=== PATIENT | male | born 1960 | race Caucasian/White ===

== ENCOUNTER 2016-11-14 10:40 | Emergency (ER) | payer BC ==
[2016-11-14 13:18] VITALS: BP 154/83
--- NOTE | 2016-11-25 08:08 | UC ---
jose angel Jacob Timothy, scribed for Michela Murray MD on 11/14/16 at 1253 . Skin Complaint HPI - HPI Summary HPI Summary: Chuck Campbell is a 56 yo male presenting to [facility] with a tick on his right posterior neck at 0900 this morning. He is not in any current pain. His MHx includes NC 2008, HTN, tobacco use. - History of Current Complaint Chief Complaint: UCWounds Time Seen by Provider: 11/14/16 12:46 Stated Complaint: TICK BITE Hx Obtained From: Patient Onset/Duration: Sudden Onset, Lasting Hours, Still Present Skin Exposure Onset/Duration: Hours Ago Timing: Constant Onset Severity: Moderate Current Severity: Moderate Pain Intensity: 0 Pain Scale Used: 0-10 Numeric Location: Discrete - posterior right neck Related History: Insect Bite/Sting - Allergy/Home Medications Allergies/Adverse Reactions: Allergies Allergy/AdvReac Type Severity Reaction Status Date / Time No Known Allergies Allergy Verified 11/14/16 11:08 Home Medications: Home Medications Atorvastatin* [Lipitor 40 MG*] 1 tab PO DAILY 11/14/16 [History Confirmed ] Losartan/HCTZ 100/25 (NF) [Hyzaar 100/25 (NF)] 1 tab PO BID 11/14/16 [History Confirmed 11/14/16] Metoprolol Tartrate [Lopressor] 25 mg PO BID 11/14/16 [History Confirmed ] Review of Systems Constitutional: Negative Skin: Other - tick bite right posterior neck ENT: Negative Respiratory: Negative Cardiovascular: Negative Gastrointestinal: Negative Genitourinary: Negative Motor: Negative Neurovascular: Negative Musculoskeletal: Negative Neurological: Negative Psychological: Negative All Other Systems Reviewed And Are Negative: Yes PMH/Surg Hx/FS Hx/Imm Hx Cardiovascular History Of: Reports: Cardiac Disorders - NC 2009, Hypertension - Surgical History Surgical History: Yes Surgery Procedure, Year, and Place: Angioplasty 2008 - Family History Known Family History: Negative: Cardiac Disease, Hypertension - Social History Alcohol Use: Occasionally Substance Use Type: None Smoking Status (MU): Heavy Every Day Tobacco Smoker Type: Cigarettes Amount Used/How Often: 10 cig/day Household Exposure Type: Cigarettes Physical Exam Triage Information Reviewed: Yes Appearance: No Pain Distress, Well-Nourished, Ill-Appearing Vital Signs: Initial Vital Signs Temp 98.0 F 11/14/16 11:04 Pulse 59 11/14/16 11:04 Resp 16 11/14/16 11:04 BP 140/69 11/14/16 11:04 Pulse Ox 99 11/14/16 11:04 Vital Signs Reviewed: Yes Eyes: Positive: Conjunctiva Clear. Negative: Discharge ENT: Positive: Hearing grossly normal. Negative: Muffled/hoarse voice Neck: Positive: Other: - right posterior neck tick bite Respiratory: Positive: Lungs clear, Normal breath sounds, No respiratory distress Cardiovascular: Positive: RRR, No Murmur, Pulses Normal, Brisk Capillary Refill Musculoskeletal: Positive: Strength Intact, ROM Intact Neurological: Positive: Alert, Muscle Tone Normal Psychological Exam: Normal Psychological: Positive: Age Appropriate Behavior Skin: Positive: Other - tick bite right posterior neck Re-Evaluation - Re-Evaluation First Eval Re-Evaluation Time: 13:08 Change: Unchanged Comment: tick was removed Course/Dx - Course Course Of Treatment: Chuck campbell is a 56 yo male presenting to [facility] with a tick bite to his right posterior neck, noticed at 0900 this morning. After clinical examination and tick removal, he will be discharged home with tick bite and appropriate instructions. Due to his BP of 140/69, he will also be Dx with HTN in poor control. - Differential Diagnoses - Skin Complaint Differential Diagnoses: Tick Born Illness - Diagnoses Provider Diagnoses: tick bite, HTN in poor control Procedures - Procedure Summary Procedure Summary: tick was partially removed with tick twister using sterile technique. Additional pieces of tick were removed with needle. Pt tolerated procedure well. Discharge - Discharge Plan Condition: Stable Disposition: HOME Patient Education Materials: Tick Bite (ED), Lyme Disease (ED), Chronic Hypertension (ED) Referrals: Kannan Suarez MD [Primary Care Provider] - 2 Days Additional Instructions: Please follow up with your primary care physician regarding your visit to urgent care today. Your blood pressure was high today, you should have it rechecked within 1 month. Return to urgent care or the emergency department with any new or recurring symptoms. The documentation as recorded by the jose angel prescott Timothy accurately reflects the service I personally performed and the decisions made by me, Michela Murray MD.
== END 2016-11-14 13:24 | disposition home or self-care (01) ==
LOC: UCEAST 10:40
DX: S10.96XA Insect bite of unspecified part of neck, initial encounter (principal); W57.XXXA Bitten or stung by nonvenomous insect and other nonvenomous arthropods, initial encounter; Y93.9 Activity, unspecified; Y92.9 Unspecified place or not applicable; I25.2 Old myocardial infarction; I10 Essential (primary) hypertension; F17.210 Nicotine dependence, cigarettes, uncomplicated
CPT/HCPCS: 99202; G0463

== ENCOUNTER → 2018-09-30 10:54 | Day surgery (SDC) | payer BC ==
[~2018-09-30 10:54] MED LIST: Acetaminophen TAB* 325 MG ONE; Acetaminophen TAB* 325 MG PO ONE; Acetaminophen TAB* 325 MG PO PRN; Bacitracin OINTMENT* 0.5% 0.5 oz TUBE ONE; Buffered Lidocaine 1% SYRIN* 1 ML/SYRINGE INTRADERM ONE; Cisatracurium* 2 MG/ML MDV 5 ML ONE; Dexamethasone IV* 4 MG/ML 1 ML (4 MG) ONE; DiMENhydriNATE IV* 50 MG/ML VIAL IV PUSH PRN; EPHEDrine (Pressors)* 50 MG/ML VIAL ONE; Famotidine IV* 10 MG/ML 2 ML (20 mg) IV ONE; Famotidine IV* 10 MG/ML 2 ML (20 mg) ONE; Gabapentin CAP(*) 300 MG ONE; Gabapentin CAP(*) 300 MG PO ONE; HYDROcodone/ACETAMIN 5-325 MG* 1 TAB ONE; HYDROcodone/ACETAMIN 5-325 MG* 1 TAB PO PRN; Lactated Ringers 1000 ML Bag* 1,000 ML IV SCH; Levalbuterol 0.63MG/3ML NEB* UNIT OF USE INH PRN; Lidocain 1% EPI 1:100,000 * 30 ML MDV ONE; Metoprolol Tartrate IV* 1 MG/ML 5 ML VIAL ONE; Midazolam* 1 MG/ML 2 ML VIAL (2 MG) ONE; Naloxone* 0.4 MG/ML 1 ML VIAL IV PRN; Ondansetron INJ* 2 MG/ML VIAL IV PRN; Ondansetron INJ* 2 MG/ML VIAL ONE; PROCHLORPERAZINE INJ 5 MG/ML 2 ML VIAL IV PRN; Propofol* 10 MG/ML 20 ML BTL ONE; Succinylcholine* 20 MG/ML 10 ML VIAL ONE; fentaNYL* 50 MCG/ML 2 ML VIAL (100 MCG VIAL) IV PRN; fentaNYL* 50 MCG/ML 2 ML VIAL (100 MCG VIAL) ONE
--- NOTE | 2018-09-30 16:10 | OP ---
DATE OF OPERATION: 09/30/18 [facility] DATE OF : 58 SURGEON: Az Consatntino MD SLOT AMBASSADOR: Dr. Nolan Randolph. ANESTHESIA: General. PRE-OP DIAGNOSIS: Neoplasm, uncertain behavior, right parotid gland. POST-OP DIAGNOSIS: Neoplasm, uncertain behavior, right parotid gland. OPERATIVE PROCEDURE: Right superficial parotidectomy with nerve monitoring. ESTIMATED BLOOD LOSS: Less than 30 cc. SPECIMEN: Right parotid. INDICATIONS: This is a 58-year-old male who I have followed for several months in the office, who initially came in with swelling in the right parotid tail region. It did not resolve on antibiotics initially and so fine needle aspiration was performed. There were some inflammatory cells and atypical cells present in the specimen, but no definitive diagnosis was able to be obtained. Following fine needle aspiration, the lesion did seem to reduce in size significantly and so any further investigation or treatment was deferred, but then it very clearly returned and CT imaging demonstrated a lesion associated with the right parotid tail. We made the decision given the patient' s age, smoking history and lack of definitive diagnosis on FNA to proceed with surgical excision. DESCRIPTION OF PROCEDURE: On 10/02/18, the patient was brought to the operating room. General anesthesia was induced and an oral endotracheal tube was placed. A NIM's facial nerve monitor was then applied to the right hemiface. The intended incision line was marked and approximately 5 cc of 1% lidocaine with 1:100,000 epinephrine was infiltrated into the subcutaneous tissue. The patient was then prepped and draped in sterile fashion and a time- out was performed. The lower limb of the incision immediately overlying the lesion was made first. Initial gentle dissection was undertaken to see if this could be safely and easily from the remainder of the parotid tissue to potentially spare the patient having a full parotid dissection. It became fairly clear that this was intimately enough associated with the gland parenchyma that that would not be advisable. Also, the incision was extended superiorly into the anterior preauricular skin. A preauricular skin flap was elevated. The dissection was then undertaken across the wide front. The sternocleido-mastoid muscle was identified and the anterior ear canal was identified. Again, dissection was undertaken along this general plane until the appropriate depth of the tympanomastoid suture line was achieved and whereby the facial nerve trunk was readily identified. It was confirmed both visually and with a nerve stimulator. The facial nerve was used as a landmark to guide dissection of the superficial portion of the parotid gland. The inferior branches did need to be dissected out essentially in their entirety throughout the parotid parenchyma in order to mobilize the lesion with associated parotid tissue. The dissection was undertaken gently using bipolar forceps and a #12 blade. Once the specimen was removed, the wound was inspected. The facial nerve was found to be visually intact and stimulated with the probe. The wound was irrigated. A few small areas of minor oozing were controlled with bipolar forceps. The wound was irrigated again and a Valsalva was performed. There was no significant bleeding. The wound was then closed. A 4-0 Vicryl was used to close the subcutaneous layer. The preauricular skin was closed with 5-0 fast absorbing gut and the incision from the lobule down to the neck was closed with 4-0 Prolene. A small [place] was placed into the incision just posterior to the lobule and this was secured to the skin with Monocryl. The wound was then dressed. Bacitracin ointment was applied. The patient was returned to the care of the anesthesiologist, aroused from anesthesia, and delivered to the PACU in stable condition where the patient had good facial nerve function. [id number]/CPS #: [id number] BERNARDO
[2018-09-30 16:14] VITALS: BP 128/72
== END | disposition home or self-care (01) ==
LOC: OR 10:54
PROVIDERS: ATTEND Otolaryngology
DX: D11.0 Benign neoplasm of parotid gland (principal); I10 Essential (primary) hypertension; I25.10 Atherosclerotic heart disease of native coronary artery without angina pectoris; I25.2 Old myocardial infarction; Z72.0 Tobacco use; E66.01 Morbid (severe) obesity due to excess calories; E78.00 Pure hypercholesterolemia, unspecified
CPT/HCPCS: 88307; A9270-GY; J0330; J1100; J2250; J2405; J2704; J3010; J3490

== ENCOUNTER 2019-03-20 09:11 | Observation (INO) | payer BC ==
--- NOTE | 2019-03-20 09:43 | ED ---
Abdominal Pain/Male - HPI Summary HPI Summary: The pt is a 59 yr old male presenting to [facility] c/o intermittent epigastric abd pain beginning on 03/07/2019. He was eating at [employer] that date, went home to mow his lawn, and then began to experience abd pain. He then had diarrhea and notes that his stool was black and noticed some rectal bleeding. Afterwards , he ate some chicken and continued to have abd pain. His last bowel movement was this morning. He currently takes 1 aspirin per day for heart after having had a heart attack 10 years [employer]. He rates his pain severity a 9/10 intermittently but notes that it is currently a 3-4 in the room. Per the , the pt has tried liquid anti-acids, BRAT diet, dry toast, and Jello but none of them have alleviated any symptoms. No aggravating factors noted. He also reports vomiting, lightheadedness, lethargy, and weakness. The pts PCP is Dr. Suarez and his GI physician is Dr. Loredo at [place]. He is a former smoker, uses marijuana, and has negative FHx of cardiac disease or HTN. He has surgical history of angioplasty in 2008. Vital signs while in room: HR 75 bpm, BP 111/63 , O2 sat 97 %. Home Medications Medication Instructions Recorded Confirmed Type Atorvastatin* [Lipitor 40 MG*] 1 tab PO QAM 11/14/16 09/30/18 History DOXYcycline CAP(*) [DOXYcycline 100 mg PO DAILY #2 cap 11/14/16 09/23/18 Rx 100MG CAP(*)] Losartan/HCTZ 100/25 (NF) [Hyzaar 1 tab PO QAM 11/14/16 09/30/18 History 100/25 (NF)] Amlodipine Bes/Olmesartan Med 1 tab PO QAM 09/23/18 09/30/18 History [Amlodipine/Olmesartan Med 5-40 mg] Aspirin [Aspir-Low] 81 mg PO QAM 09/23/18 09/30/18 History Bisoprolol TAB* [Zebeta TAB*] 5 mg PO QPM 09/23/18 09/30/18 History Lidocaine 2% JELLY* 1 applic TOPICAL DAILY 09/23/18 09/30/18 History Tadalafil 20 mg PO ONCE PRN 09/23/18 09/23/18 History Tamsulosin CAP* [Flomax CAP*] 0.4 mg PO QAM 09/23/18 09/30/18 History Varenicline (NF) [Chantix 1 MG TAB 1 mg PO BID 09/23/18 09/30/18 History (NF)] - History of Current Complaint Chief Complaint: EDAbdPain Stated Complaint: ABD PAIN/VOMITING/RECTAL BLEEDING PER PT Time Seen by Provider: 03/20/19 09:24 Hx Obtained From: Patient, Family/Shoe Reconditioner - Crystal Onset/Duration: Sudden Onset, Lasting Weeks, Still Present Timing: Intermittent, Lasting Minutes Severity Initially: Severe Severity Currently: Severe Pain Intensity: 9 - currently pain is rated 3-4. Pain Scale Used: 0-10 Numeric Location: Epigastric Radiates: No Character: Sharp Aggravating Factor(s): Nothing Alleviating Factor(s): Nothing Associated Signs And Symptoms: Positive: Vomiting, Diarrhea, Other - pos - abd pain, lethargy, weakness, lightheadedness, black colored stool; neg-fever, chest pain, SOB - Allergies/Home Medications Allergies/Adverse Reactions: Allergies Allergy/AdvReac Type Severity Reaction Status Date / Time No Known Allergies Allergy Verified 04/12/19 11:09 PMH/Surg Hx/FS Hx/Imm Hx Previously Healthy: No Endocrine/Hematology History: Denies: Hx Diabetes Cardiovascular History: Reports: Hx Angina - with heart attack 2008, Hx Angioplasty, Hx Coronary Artery Disease - Failed angioplasty 2008-unable to place stent, Hx Hypercholesterolemia, Hx Hypertension - on medication, Hx Myocardial Infarction Denies: Hx Congestive Heart Failure Respiratory History: Denies: Other Respiratory Problems/Disorders GI History: Denies: Other GI Disorders History: Reports: Other Problems/Disorders - Enlarged prostate-on flomax Denies: Hx Renal Disease Musculoskeletal History: Denies: Other Musculoskeletal History Sensory History: Reports: Hx Contacts or Glasses - Glasses Denies: Hx Hearing Aid Opthamlomology History: Reports: Hx Contacts or Glasses - Glasses Neurological History: Denies: Other Neuro Impairments/Disorders - Surgical History Surgical History: Yes Surgery Procedure, Year, and Place: Angioplasty 2008 Hx Anesthesia Reactions: No Infectious Disease History: No Infectious Disease History: Denies: Traveled Outside the [place] in Last 30 Days - Family History Known Family History: Negative: Cardiac Disease, Hypertension - Social History Lives: With Family Alcohol Use: Weekly Alcohol Amount: once a week-a beer or a six pack on friday Hx Substance Use: Yes Substance Use Type: Reports: Marijuana Substance Use Comment - Amount & Last Used: has used -not recently Smoking Status (MU): Former Smoker Type: Cigarettes Amount Used/How Often: off an on for 30 years Review of Systems Constitutional: Other - pos - lethargic Positive: Fatigue Cardiovascular: Negative Respiratory: Negative Positive: Abdominal Pain, Vomiting, Diarrhea, Other - pos - rectal bleeding, black stool Positive: no symptoms reported Musculoskeletal: Negative Skin: Negative Neurological: Other - pos - lightheadedness Positive: Weakness Psychological: Normal All Other Systems Reviewed And Are Negative: Yes Physical Exam - Summary Physical Exam Summary: Appearance: Ill-appearing, moderate pain distress, well-nourished Skin: Warm, color reflects adequate perfusion, dry Head: Normal Head/Face inspection, atraumatic Eyes: Conjunctiva clear ENT: Normal inspection Neck: Supple, no nodes, no JVD Respiratory: Lungs clear, normal breath sounds, no respiratory distress Cardio: RRR, No murmur, pulses normal, brisk capillary refill Abdomen: Soft, moderate epigastric tenderness, nondistended, no masses,no guarding, no rebound Rectal Exam: No hemorrhoids, no masses, minimally enlarged prostate with no masses, smooth.; guaiac positive stool; PARISA Gar is merchandising specialist Bowel sounds: Present Musculoskeletal: Strength Intact/ROM intact, no calf tenderness, no edema. Psychological: Normal Neuro: Alert, muscle tone normal, no focal deficit Triage Information Reviewed: Yes Vital Signs On Initial Exam: Initial Vitals Temp Pulse Resp BP Pulse Ox 97 F 75 16 111/63 97 03/20/19 09:13 03/20/19 09:13 03/20/19 09:13 03/20/19 09:13 03/20/19 09:13 Vital Signs Reviewed: Yes Diagnostics - Vital Signs Vital Signs Temp Pulse Resp BP Pulse Ox 03/20/19 09:13 97 F 75 16 111/63 97 - Laboratory Result Diagrams: 03/21/19 05:43 03/21/19 05:43 Lab Statement: Any lab studies that have been ordered have been reviewed, and results considered in the medical decision making process. - CT CT A/P CT Interpretation Completed By: Radiologist Summary of CT Findings: Impression: In the region of the first portion and second portion of the duodenum as well as the gastric antrum there appears to be submucosal edema noted. There is some adjacent extraluminal fluid noted. There is suggestion of a tiny focus of air which may be extraluminal in nature. The possibility of peptic ulcer disease should BE considered. No other masses or fluid collections are identified. Cortical cysts are noted in the right kidney. ED Physician has reviewed this report. - EKG 1057 Cardiac Rate: NL - 63 bpm EKG Rhythm: Sinus Rhythm ST Segment: Non-Specific Ectopy: None EKG Comparison: Other - c/w 07/05/09 inf wall PR is now completed Summary of EKG Findings: NSR @ 63 bpm. Normal AVCT prolonged IV CT (non-specific , 119), normal QTc, LAD (-20). Non-specific ST-T wave changes. No acute changes. Compared with EKG done on 07/05/2009, inferior wall PR is completed. Re-Evaluation - Re-Evaluation First Eval Re-Evaluation Time: 11:06 Change: Worse Comment: Blood pressure dropped to 78/56 and HR increased from 59 to 74 when standing, see orthostatic vitals in nurse report, drinking contrast. Second Eval Re-Evaluation Time: 13:17 Comment: BP was 136/101, HR was 63 bpm. Pts pain was 6/10. abd was non distended , tender at the epigastric region, soft. Abdominal Pain Male Course/Dx - Course Course Of Treatment: The pt is a 59 yr old male presenting to [facility] c/o intermittent epigastric abd pain beginning on 03/07/2019. He was eating at [employer] that date, went home to mow his lawn, and then began to experience abd pain. He also reports vomiting, diarrhea, black stool, rectal bleeding, lightheadedness, lethargy, and weakness. A CT A/P reveals: In the region of the first portion and second portion of the duodenum as well as the gastric antrum there appears to be submucosal edema noted. There is some adjacent extraluminal fluid noted. There is suggestion of a tiny focus of air which may be extraluminal in nature. The possibility of peptic ulcer disease should BE considered. No other masses or fluid collections are identified. Cortical cysts are noted in the right kidney. An EKG reveals: NSR @ 63 bpm. Normal AVCT prolonged IV CT (non-specific, 119), normal QTc, LAD (-20). Non-specific ST-T wave changes. No ectopy. No acute changes. Compared with EKG done on 07/05/2009 , inferior wall PR is completed. Test results normal except for INR @ 1.12, Sodium @132, Chloride @ 98, Creatinine @ 1.51, Glucose @ 115, and Total Bilirubin @ 1.40. In the ED course the pt was given 80 mg Protonix IV, 141 ml Visipaque IV, 4 mg Morphine IV, Piperacillin SOD/Tazobactam SOD IV 3.375gm, and 2000 mls fluids IV. @[address] Parham regarding the pt's case. Dr. Parham states GI will consult on pt, but pt cannot be endoscoped at this time due to prob perforation @[address] Vera regarding the pt's case. Dr. Vera suggests Zosyn for the pt and he will evaluated pt. Final Dx are epigastric pain, perforated peptic ulcer, and upper GI bleed. Hospitalist consulted and will admit the pt to [facility]. Pt is agreeable with this plan. - Diagnoses Differential Diagnosis/HQI/PQRI: Abdominal Aortic Aneurysm, ACS, AMI, Bowel Obstruction, Gall Bladder Disease, Hepatitis, Peptic Ulcer Disease Provider Diagnoses: Epigastric pain, Perforated peptic ulcer, Upper GI bleed - Provider Notifications Discussed Care Of Patient With: Alejo Parham - Will follow, can't be endoscoped Time Discussed With Above Provider: 13:28 - Dr. Vera consulted, will evaluate pt, give Zosyn Instructed by Provider To: Admit As Inpatient - hospitalist - Critical Care Time Critical Care Time: 30-74 min - 30 Discharge ED - Sign-Out/Discharge Documenting (check all that apply): Patient Departure - admit Patient Received Moderate/Deep Sedation with Procedure: No - Discharge Plan Condition: Good Disposition: ADMITTED TO [facility] - Billing Disposition and Condition Condition: GOOD Disposition: Admitted to [facility] - Attestation Statements Document Initiated by Scribe: Yes Documenting Scribe: Bob Au Provider For Whom Scribe is Documenting (Include Credential): Michela Murray MD Scribe Attestation: Bob Jacob, scribed for Michela Murray MD on 04/30/19 at 0403. Scribe Documentation Reviewed: Yes Provider Attestation: The documentation as recorded by the scribe, Bob Au accurately reflects the service I personally performed and the decisions made by me, Michela Murray MD Status of Scribe Document: Viewed
[2019-03-20 09:55] LABS: ABS Basophils 0.1 10^3/ul (0-0.2); ABS Eosinophils 0.2 10^3/ul (0-0.6); ABS Lymphocytes 1.2 10^3/ul (1.0-4.8); ABS Monocytes 0.8 10^3/ul (0-0.8); ABS Neutrophils 7.4 10^3/ul (1.5-7.7); Eosinophil % 1.7 %; Hematocrit 44 % (42-52); Hemoglobin 15.5 g/dL (14.0-18.0); Lymphocyte % 12.4 %; Mean Corpuscular HGB Conc 35 g/dL (31-36); Mean Corpuscular Hemoglobin 31 pg (27-31); Mean Corpuscular Volume 88 fL (80-94); Mean Platelet Volume 8.3 fL (7.4-10.4); Platelet Count 242 10^3/uL (150-450); Red Blood Count 5.03 10^6 /uL (4.18-5.48); Red Cell Distribution Width 13 % (10-15); White Blood Count 9.7 10^3/uL (3.5-10.8)
[2019-03-20 10:09] LABS: Activated Partial Thrombo Time 27.6 seconds (26.0-38.0); INR 1.12 (0.82-1.09)
[2019-03-20 10:12] LABS: Albumin 4.1 g/dL (3.2-5.2); Albumin/Globulin Ratio 1.6 (1-3); BUN/Creatinine Ratio 15.9 (8-20); EGFR African American 57.3 (>60); EGFR Non-African American 47.4 (>60); Globulin 2.5 g/dL (2-4); Potassium 3.5 mmol/L (3.5-5.0); Total Bilirubin 1.4 mg/dL (0.2-1.0); Total Protein 6.6 g/dL (6.4-8.9)
[2019-03-20 10:13] LABS: Troponin I 0.01 ng/mL (<0.04)
[2019-03-20] MEDS ORDERED: NS 0.9% 1000 ML** 2,000 ML IV ONE (10:23)
[2019-03-20] MEDS ORDERED: Iodixanol* (CONTRAST) 320 MG/ML 100 ML SDV IV ONE (11:59)
[2019-03-20] MEDS ORDERED: Pantoprazole IV* 40 MG IV ONE (13:08)
[2019-03-20] MEDS ORDERED: Pantoprazole* 80 mg IN NS 80 MG/250 ML BAG IV ONE (13:09)
[2019-03-20] MEDS ORDERED: Morphine 4 MG/ML VIAL (1 ml) 4 MG/ML VIAL IV ONE (13:48)
[2019-03-20] MEDS ORDERED: Piperacillin/Tazobac ADVAN(*) 3.375 GM in NS 0.9% 100 ML* 100 ML IVPB ONE (13:49)
[2019-03-20] MEDS ORDERED: NS 0.9% 1000 ML** 1,000 ML IV SCH (16:15)
[2019-03-20] MEDS ORDERED: Zosyn per Pharmacy* NOTE FOLLOW UP SCH (17:00)
--- NOTE | 2019-03-20 17:56 | CONS ---
CC: [facility]; Dr. Kannan Suarez, [facility] CONSULTATION REPORT: DATE OF CONSULT: 03/20/19 REFERRING PROVIDER: Dr. Michela Murray, emergency room physician. REASON FOR CONSULTATION: Epigastric abdominal pain and abnormal CT scan of the duodenum. HISTORY OF PRESENT ILLNESS: Mr. Chuck Campbell is a 59-year-old gentleman who on Friday had a regular dinner and several beers and woke up late in the evening with bilious vomiting and diarrhea. This became associated with some upper abdominal discomfort that did not radiate to his back. He had no fever, shakes, or chills and no one else in the family had been sick. He states he may drink 6 or 7 beers at a time, but only does this once to twice a week. Over the course of the next several days and into this week, he felt weak. He had no further vomiting, but he had nausea. There was no diarrhea. He had no blood per rectum, and he had no black tarry stools. He has been somewhat constipated. He assumed that he had a viral illness or gastrointestinal upset, did not seek care. He was scheduled for a colonoscopy on Friday for routine followup, but he did not keep that appointment as he did not feel well. Yesterday and today, his discomfort persisted mainly in the upper abdomen and due to the fact that he was not improving, he presented to the emergency room here today. When seen in the emergency room, he was noted to be afebrile with no tachycardia. He was hemodynamically stable. He was noted to have some tenderness at the epigastrium without evidence of abdominal distention, peritoneal irritation, or guarding. Laboratory values included a white blood cell count of 9.7 with a normal hemoglobin. His MCV was 88. BUN and creatinine of 24 and 1.51. Total bilirubin of 1.4. His liver transaminases were normal. C-reactive protein and lactic acid were not performed. He underwent a CT scan of the abdomen and pelvis. This was done with both oral and IV contrast. I reviewed these images with Dr. Painting from Radiology. He says that the patient had several hours of oral contrast prior to the study being performed. This study shows submucosal edema noted in the first and second portions of the duodenum medially with some possible extraluminal fluid, but does not appear to be free fluid. There was a suggestion of a tiny focus of air, which may be extraluminal in the border between the duodenum and the pancreas. There was no extraluminal air. There was no free extraluminal fluid, and the CT scan was unremarkable and contrast passed down to the colon without difficulty. The patient has been admitted to the hospitalist service and surgical consultation has been obtained. The patient denied use of recent nonsteroidal pain medicines for any reason. He has been on no unusual medicines. Alcohol consumption as per above. He has never had problems or history of peptic ulcer disease. He does take a baby aspirin a day. PAST MEDICAL HISTORY: 1. Coronary artery disease with a history of myocardial infarction. 2. Hypertension. 3. Hypercholesterolemia. 4. Benign prostatic hypertrophy. PAST SURGICAL HISTORY: Past abdominal surgery, none. MEDICATIONS: Include: 1. Chantix. 2. Flomax. 3. Losartan. 4. Zebeta 5 mg daily. 5. Lipitor. 6. Baby aspirin. 7. Amlodipine. ALLERGIES: He has no known drug allergies. SOCIAL HISTORY: He is retired, worked at [id number]. He quit smoking about 8 months ago. He drinks alcohol as per above, 6 to 7 beers twice a week. He is and lives in [place], [place]. REVIEW OF SYSTEMS: An 11-point review of systems was obtained and is unremarkable other than that described above. PHYSICAL EXAM: He is afebrile. Pulse 71, blood pressure 116/83. In general, he is a well-developed overweight male, appears to be in no apparent distress, watching TV and is comfortable. He is awake, alert, and conversive. His lungs are clear to auscultation with normal respiratory effort. He has decreased breath sounds at the bases. Heart has a regular rate and rhythm without murmurs , rubs, or gallops. His abdomen is soft, slightly distended. No prior surgical incisions. He has no hernias. He has normoactive bowel sounds throughout. He has some mild tenderness in the epigastrium, but no discomfort in the right upper quadrant or left upper quadrant. There is no lower abdominal pain. Psychiatric: He is awake, alert, and oriented x3. He has normal judgment and insight. IMPRESSION: Epigastric discomfort with the CT scan showing edema with a possible small area of contained perforation in the medial wall of the second portion of the duodenum abutting the pancreas. There is no free extraluminal fluid, contrast or air, and the study was otherwise unremarkable. There is no evidence of obstruction. I suspect this to be peptic ulcer disease. He had an adequate amount of oral contrast, and there does not appear to be any contrast extravasation. There appears to be no evidence of a free perforation. He is to be admitted to the medical service and started on IV Protonix. We will keep him n.p.o. IV fluids have been administered as he appears to be somewhat dehydrated. At this point, I do not believe that there is any indication for emergent surgical intervention, and I have recommended continuing careful observation. I would consider an upper GI with Gastrografin and possible barium tomorrow depending on his clinical course. At some point, he will require an upper endoscopy and GI is to be consulted and this will be discussed with them. I discussed all of the above with the patient and his here in the emergency room. Certainly if he worsen or develop signs of peritonitis and/or sepsis, he would require emergent laparoscopy with possible laparotomy and I discussed this with him and his but I am hopeful that this will not be necessary. [id number]/[facility] #: [id number] MTDD
[2019-03-20] MEDS ORDERED: Bisoprolol TAB* 5 MG PO SCH (18:00)
[2019-03-20] MEDS: ZOSYN 3.375 GM Q8H per EXTENDED INFUSION IVPB SCH ×2 (19:44)
--- NOTE | 2019-03-20 23:31 | HP ---
CC: Dr. Suarez* HISTORY AND PHYSICAL: DATE OF ADMISSION: 03/20/19 PROVIDER: Tasha Shaffer NP. PRIMARY CARE PROVIDER: Dr. Suarez. ATTENDING PHYSICIAN WHILE IN THE HOSPITAL: Dr. Jevon Bravo* (dictated by Tasha Shaffer NP). CHIEF COMPLAINT: Abdominal pain. HISTORY OF PRESENT ILLNESS: Mr. Campbell is a 59-year-old gentleman with a past medical history significant for coronary artery disease, hypertension, hyperlipidemia, who presented to the emergency room with complaints of upper epigastric abdominal pain. The patient reports that he started with the abdominal pain on Friday. He reports that he had an episode of vomiting and diarrhea on Friday, but no further episodes. He continued to have [id number] epigastric pain since Friday. He reports that he attempted several over-the- counter remedies including Pepto and antacids, with no relief. Due to his continued abdominal pain, the patient presented to the emergency room for further evaluation. The patient does report that nothing made the pain worse. He does report that after eating the pain did improve, but then returned shortly after eating. The patient reports that he has had a decreased appetite x5 days, just has not felt like eating. He denies any fevers or unintended weight loss. He does report chills. No chest pain or edema, cough, hemoptysis , shortness of breath. He does report an episode of nausea and vomiting, but no blood, on Friday. He denies any diarrhea. He does report mid- to-upper epigastric pain, but no current pain at the present since receiving medication in the emergency room. Denies any hematuria, dysuria, focal weakness or sensory loss. Denies any visual complaints, dysphagia, arthralgias, myalgias, rashes, lesions, open sores, psychosis or anxiety. He denies any black or tarry stools. While in the emergency room, the patient had a CT of the abdomen and pelvis, with concern for edema and a tiny focus of air, and a possibility of peptic ulcer disease. Due to these findings, Hospital Medicine was asked to see and evaluate the patient for admission. PAST MEDICAL HISTORY: Significant for hypertension, hyperlipidemia, history of an ND 10 years ago. PAST SURGICAL HISTORY: Cardiac catheterization, no stent placements. HOME MEDICATIONS: Include: 1. Aspirin 81 mg p.o. daily. 2. Atorvastatin 80 mg p.o. daily. 3. Tamsulosin 0.5 mg p.o. at bedtime. 4. Bisoprolol 5 mg p.o. at bedtime. 5. Amlodipine/olmesartan 5/40, one tablet p.o. daily. ALLERGIES: No known drug allergies. FAMILY HISTORY: No reported history of coronary artery disease, diabetes or cancer. SOCIAL HISTORY: The patient reports he quit smoking 9 months ago. He does report 1 to 2 drinks per week. No illicit drugs. He is currently not employed. He is . Surrogate decision maker in the event he is unable to make his own decisions is his . He is a full code. REVIEW OF SYSTEMS: A 14-point review of systems was completed and all pertinent positives are mentioned in the HPI. PHYSICAL EXAMINATION GENERAL: At this time, Mr. Campbell is a 59-year-old male, he is resting comfortably on the stretcher in the emergency room. He is in no acute distress. He is well-developed, well-nourished male. VITAL SIGNS: Blood pressure 116/83, heart rate 71, respirations are 16, O2 saturation 96%, temperature is 97.9. HEENT: Head is atraumatic, normocephalic. Eyes: EOMs are intact. Sclerae anicteric and not pale. Oral mucosa appear to be moist. NECK: Supple. LUNGS: Clear to auscultation bilaterally. No wheezes, rales or rhonchi. CARDIAC: S1 and S2. Regular rate and rhythm. No murmurs, rubs or gallops. ABDOMEN: Nontender, obese, soft. Bowel sounds are present x4. EXTREMITIES: He is able to move all 4 extremities. There is no clubbing or cyanosis. Pedal pulses are +2 bilaterally. NEUROLOGIC: He is awake, alert, and oriented x3. His speech is clear. Thought process is intact. There is no gross focal deficits. SKIN: Intact. LABORATORY DATA AND DIAGNOSTIC STUDIES: WBCs are 9.7, RBCs 5.03, hemoglobin 15.5, hematocrit was 44, platelet count was 242. INR was 1.12, APTT was 27.6. Sodium 132, potassium 3.5, chloride 98, carbon dioxide was 28, anion gap was 6, BUN was 24, creatinine 1.51, glucose was 115. Total bilirubin 1.40, ASTs were 14, ALTs were 16, alkaline phosphatase was 67. Troponin was 0.01. The patient had a CT of the abdomen and pelvis. Radiologist's impression: There is a region in the first portion and the second portion of the duodenum as well as the gastric antrum. There appears to be submucosal edema noted. There is some adjacent extraluminal fluid noted. There is a suggestion of tiny focus of air, which may be considered extraluminal in nature, possible peptic ulcer disease should be considered. No other masses or fluid collections are identified. Cortical Cysts are noted in the right kidney. He had an electrocardiogram, which showed sinus rhythm at a rate of 63. He does have T-wave inversion in lead 3 and V1. He has no acute ST elevations or depressions. ASSESSMENT AND PLAN: Mr. Campbell is a 59-year-old male with a past medical history significant for coronary artery disease, hypertension, and hyperlipidemia, who presented to the emergency room with complaints of abdominal pain. He will be admitted for: 1. Abdominal pain: I suspect this is related to peptic ulcer disease. The patient does complain of upper epigastric pain with relief with eating. The patient currently reports that the pain has subsided since receiving Protonix in the emergency room. He did receive Protonix 80 mg IV and he is currently on a Protonix drip. We will continue his Protonix drip. He will be placed on n.p.o. due to questionable free tiny focus of air noted on the CT of the abdomen and question perforation. . Dr. Vera from Surgery has seen and consulted on the patient, who has recommended an upper GI series, n.p.o. status , and continue with Zosyn IV. Gastroenterology will also need to be consulted. The patient also was placed on normal saline at 100 cc per hour overnight. 2. Hypertension: I will hold his medications at this time as the patient is n.p.o. 3. History of coronary artery disease: We will hold his medications at this time as the patient is n.p.o. 4. Elevated Creatinine. We do not have previous labs to compare creatinine level to. I will repeat BMP in the AM and avoid nephrotoxic medications. 5. FEN: He is n.p.o. 6. Code status: He is full code. 7. DVT prophylaxis: I will place him on SCDs as chemical DVT prophylaxis is contraindicated at this time as the patient may need to proceed with surgery. 8. Disposition: The patient will be placed on observation on the medical floor. TIME SPENT: Time spent on this admission was 60 minutes, greater than half of that time was spent at the bedside reviewing the events leading thus far to his hospitalization, performing physical exam, and reviewing my plan of care. I have discussed this with my attending, Dr. Jevon Bravo; he is in agreement with my plan. TASHA SHAFFER, FLAQUITO [id number]/[facility] #: [id number] BERNARDO
[2019-03-21] MEDS: ZOSYN 3.375 GM Q8H per EXTENDED INFUSION IVPB SCH ×4 (03:05→09:47)
[2019-03-21 05:56] LABS: ABS Basophils 0.1 10^3/ul (0-0.2); ABS Eosinophils 0.3 10^3/ul (0-0.6); ABS Lymphocytes 1.4 10^3/ul (1.0-4.8); ABS Monocytes 0.6 10^3/ul (0-0.8); ABS Neutrophils 5.2 10^3/ul (1.5-7.7); Eosinophil % 4.4 %; Hematocrit 37 % (42-52); Hemoglobin 13.2 g/dL (14.0-18.0); Lymphocyte % 18.3 %; Mean Corpuscular HGB Conc 35 g/dL (31-36); Mean Corpuscular Hemoglobin 31 pg (27-31); Mean Corpuscular Volume 87 fL (80-94); Mean Platelet Volume 8.5 fL (7.4-10.4); Platelet Count 190 10^3/uL (150-450); Red Cell Distribution Width 14 % (10-15); White Blood Count 7.7 10^3/uL (3.5-10.8)
[2019-03-21 06:13] LABS: Calcium 8.3 mg/dL (8.6-10.3); EGFR Non-African American 57.8 (>60); Potassium 3.4 mmol/L (3.5-5.0)
[2019-03-21] MEDS ORDERED: Atorvastatin* 40 MG TAB PO SCH (09:00)
[2019-03-21 09:58] VITALS: BP 133/66
--- NOTE | 2019-03-21 10:00 | CONS ---
CC: Dr. Suarez* CONSULTATION REPORT: DATE OF CONSULT: 03/21/19 REQUESTING PROVIDER: FARHANA Washburn. INDICATION: Abdominal pain. NARRATIVE: Mr. Campbell is a very pleasant 59-year-old gentleman, who states that his symptoms began on Friday. He developed epigastric pain. He thought it was just a general illness and was not too concerned; however, the symptoms continued to persist. He denied any vomiting. He was having some nausea. Denies any change of his bowel habits, specifically no blood in the stool, no black and tarry stools, no bright red blood. He denies any NSAID except for baby aspirin once a day. He has never had pain like this before. He has never had GI bleeding or ulcers in the past. No family history of peptic ulcer disease. The patient presented to the emergency room yesterday where a CT showed a possible small, contained perforation and he was admitted to the hospital. This morning, he states that he feels great. He denies any pain at all. PAST MEDICAL HISTORY: Significant for coronary artery disease, hypertension, hyperlipidemia. PAST SURGICAL HISTORY: None. MEDICATIONS: Upon admission include: 1. 81 mg of aspirin. 2. Amlodipine. 3. Atorvastatin 80 mg. ALLERGIES: None. FAMILY HISTORY: No peptic ulcer disease or gastric cancer in the family. SOCIAL HISTORY: He quit smoking approximately a year ago. He drinks alcohol on a regular basis. No IV drugs. REVIEW OF SYSTEMS: Twelve systems were reviewed; other than mentioned in the HPI, were unremarkable. PHYSICAL EXAM: Temperature is 97.7, blood pressure is 131/79, pulse is 54, respiratory rate of 18, O2 sat is 98%. General: Well-appearing male, in no apparent distress, alert, oriented, pleasant, fluent. HEENT: Mucous membranes are moist without lesions, ulcers, or exudate. Neck is supple. Tracheal is midline. Head is normocephalic, atraumatic. Heart: Regular rate and rhythm. Lungs are clear to auscultation. Abdomen: Positive bowel sounds, obese, soft, nontender, nondistended. No hepatosplenomegaly, masses, rebound, or guarding. Skin is warm and dry. Psych: Normal affect, good insight, good judgment. Lymph: No supraclavicular or cervical lymphadenopathy. DIAGNOSTIC STUDIES/LAB DATA: Workup includes a CT that is read as in the region of the first portion and second portion of the duodenum as well as epigastric antrum there appears to be submucosal edema. There is some adjacent extraluminal fluid noted. There is a suggestion of a tiny focus of air, which may be extraluminal in nature. The possibility of peptic ulcer disease should be considered. White count of 7.7; hemoglobin is 13.2, down from 15.5; platelets of 190, INR is 1.12. LFTs are unremarkable with the exception of a total bilirubin of 1.4, creatinine went from 1.51 down to 1.27. ASSESSMENT AND PLAN: This is a pleasant 59-year-old gentleman with epigastric pain and a CT showing possible peptic ulcer disease and a possible perforation versus contained perforation. At this point, he is pain-free. He has been on IV PPI. He very well could have a small, contained perforation secondary to peptic ulcer disease due to his chronic aspirin use and/or H. pylori. Given the CT findings, I would be hesitant to perform an EGD at this point. I would first like to get an upper GI series for further evaluation. We will also check his stool for H. pylori. He will remain on his PPI and he will need an upper endoscopy at some point, but likely in the next few weeks for further evaluation. [id number]/[facility] #: [id number] [facility]
--- NOTE | 2019-03-21 10:51 | PN ---
Progress Note - Progress Note Date of Service: 03/21/19 SOAP: Subjective: No abdominal pain Hungry and wants to eat Ambulating without difficulty Objective: Temp Pulse Resp BP Pulse Ox 98.0 F 52 24 133/66 98 03/21/19 07:15 03/21/19 07:15 03/21/19 07:15 03/21/19 07:15 03/21/19 07:15 PEX: Comfortable Abd is soft and slightly distended. Bowel sounds are present No tenderness or guarding Laboratory Results - last 24 hr 03/21/19 03/21/19 05:43 05:43 WBC 7.7 RBC 4.30 Hgb 13.2 L Hct 37 L MCV 87 MCH 31 MCHC 35 RDW 14 Plt Count 190 MPV 8.5 Neut % (Auto) 67.7 Lymph % (Auto) 18.3 Davis % (Auto) 8.2 Eos % (Auto) 4.4 Baso % (Auto) 1.4 Absolute Neuts (auto) 5.2 Absolute Lymphs (auto) 1.4 Absolute Monos (auto) 0.6 Absolute Eos (auto) 0.3 Absolute Basos (auto) 0.1 Absolute Nucleated RBC 0.0 Nucleated RBC % 0.0 Sodium 136 Potassium 3.4 L Chloride 106 Carbon Dioxide 24 Anion Gap 6 BUN 19 Creatinine 1.27 H Est GFR ( Amer) 70.0 Est GFR (Non-Af Amer) 57.8 BUN/Creatinine Ratio 15.0 Glucose 90 Calcium 8.3 L UGI reviewed 03/21-no evidence of leak, possible ulcer noted duodenum Assessment: Probable duodenal ulcer-no evidence of leak Abdominal pain-resolved Plan: Start clear liquids GI has seen-note appreciated. PPI OK for discharge from surgical standpoint-no intervention needed, no outpatient follow up necessary. Please call with any problems or concerns
--- NOTE | 2019-03-21 16:51 | DS ---
CC: Dr. Suarez; Dr. Nassar* DISCHARGE SUMMARY: DATE OF ADMISSION: 03/20/19 DATE OF DISCHARGE: 03/21/19 PRIMARY CARE PROVIDER: Dr. Suarez. ATTENDING PHYSICIAN: Dr. Nassar* (dictated by NEIL Stewart). PRIMARY DIAGNOSIS: 1. Epigastric pain, possible peptic ulcer disease. SECONDARY DIAGNOSES: 1. Coronary artery disease, myocardial infarction 10 years ago. 2. Hypertension. 3. Hyperlipidemia. CONSULTATIONS WHILE IN THE HOSPITAL: 1. Surgery, impression: Epigastric discomfort with CT showing edema with possible small area of contained perforation in the medial wall of the second portion of the duodenum abutting the pancreas. No extraluminal fluid, contrast , or air. No evidence of obstruction. I suspect this to be PUD. There does not appear to be any contrast extravasation. No evidence of free perforation. Start on IV Protonix, n.p.o., IV fluids. I do not believe there is any indication for emergent surgical intervention. Recommend continued careful observation. Consider upper GI with Gastrografin and possibly barium. At some point, he will require upper endoscopy. Consult GI. 2. GI consult, assessment and plan: A 59-year-old male with epigastric pain. CT showing possible PUD and possible perforation versus contained perforation. He is pain-free. He has been on IV PPI. Could have small contained perforation secondary to PUD due to chronic aspirin use and/or H. pylori. Given CT findings, I would be hesitant to perform EGD at this point. Get upper GI, stool for H. pylori. Remain on PPI and he will need an upper endoscopy at some point, but likely in the next few weeks for further evaluation. STUDIES WHILE IN THE HOSPITAL: 1. CT abdomen and pelvis, impression: In the region of the first portion and second portion of duodenum as well as gastric antrum, there appears to be submucosal edema noted. There is some adjacent extraluminal fluid noted. There is suggestion of a tiny focus of air, which may be extraluminal in nature. The possibility of peptic ulcer disease should be considered. No other masses or fluid collection are identified. Cortical cysts are noted in the right kidney. 2. Upper GI, impression: No extraluminal contrast is noted. There is suggestion of ulcer in the medial aspect of the duodenal bulb. DISCHARGE MEDICATIONS: Home medications: 1. Amlodipine besylate/olmesartan 5/40 one tab p.o. q.a.m. 2. Aspirin 81 mg p.o. daily. 3. Bisoprolol 5 mg p.o. q.p.m. 4. Tamsulosin 0.4 mg p.o. at bedtime. 5. Atorvastatin 80 mg p.o. q.a.m. New home medication: Pantoprazole 40 mg p.o. b.i.d. HISTORY OF PRESENT ILLNESS/HOSPITAL COURSE: Mr. Campbell is a 59-year-old male with past medical history of CAD, hypertension, hyperlipidemia, who presented to the ER on 03/20/19 with complaints of epigastric abdominal pain. For full and complete details, please see the H and P dictated by Tasha Shaffer NP, but in short, he reports epigastric pain starting approximately 6 days ago. When the symptoms began, he had 1 episode of vomiting and diarrhea, but no further episodes. [id number] medications have not helped. Eating resolves the pain temporarily. A CT scan of the abdomen, as mentioned above, revealed possible PUD. The patient was started on Protonix 80 IV. Surgery was consulted and recommended upper GI series. This was obtained and revealed no extraluminal contrast, suggestion of ulcer in the duodenal bulb. GI was consulted and recommended continued PPI, stool for H. pylori, and EGD outpatient. On the day of discharge, the patient is eager to be discharged. He denies abdominal pain, nausea, vomiting, constipation. He denies hematemesis , hematochezia, melena. He does note that he has some episodes of diarrhea, but again no abdominal pain. He denies chest pain, shortness of breath, headache, vision changes, fever, chills, sweats, pain in the extremities, numbness or tingling in the extremities, myalgias, arthralgias. He is eager for discharge to home with close followup to GI for EGD. Mr. Campbell is stable for discharge. On the day of discharge, it is noted that the patient's H and H have decreased somewhat since admission. This is suspected to be dilutional due to 4 L IV fluids over 24 hours. PHYSICAL EXAMINATION: Vital Signs: Temperature 98.0, heart rate 52, respiratory rate 24, oxygen saturation 98% on room air, blood pressure 133/66. General: Mr. Campbell is a well-developed, well-nourished, middle-aged white man, who is sitting up in bed. He appears to be in no acute distress. He is obese. He is pleasant, cooperative. HEENT: PERRL. EOMI. Nonicteric sclerae. Hearing grossly intact. Oral mucous membranes are moist without lesions. The pharynx is clear. Cardiovascular: Regular rate and rhythm with S1 , S2 present without murmurs, rubs, clicks, or gallops. There is no JVD. There is no peripheral edema. Radial and pedal pulses are palpable. Pulmonary : Symmetrical chest expansion without use of accessory muscles. Lungs are clear to auscultation bilaterally without rhonchi, wheezes, or rales. No digital clubbing or cyanosis. Abdomen: Obese. Bowel sounds noted in all quadrants. The abdomen is soft. There is no tenderness to palpation throughout the abdomen. No epigastric tenderness. Musculoskeletal: Full range of motion without pain or deformities. Neuro: The patient is awake. He is alert and oriented x3 with cranial nerves grossly intact. He is able to move all of his extremities. He has a steady gait without impairment. DISCHARGE PLAN: Mr. Campbell will be discharged to home. ACTIVITY: As tolerated. DIET: Heart-healthy. MEDICATIONS: Continue pantoprazole 40 mg p.o. b.i.d. EDUCATION: 1. Follow up with primary care provider in 4 to 7 days. 2. Follow up with Gastroenterology, Dr. Parham. His office will call with appointment date and time. 3. Return to the ER if you experience any worsening of symptoms; return if abdominal pain; return for nausea, vomiting, hematemesis, dizziness, lightheadedness, loss of consciousness; return for chest discomfort, shortness of breath, high fevers, chills, night sweats. This is a summarized report of a complex medical history and hospital stay. For further details, please see the entire medical record. TIME SPENT: Approximately 35 minutes was spent on this discharge, greater than half that time was spent [id number] with the patient discussing discharge plans and instructions. NEIL ESPOSITO [id number]/[facility] #: [id number] [facility]
[2019-03-24 16:32] LABS: Stool Helicobacter pylori Ag Negative (Negative)
== END 2019-03-21 13:45 | disposition home or self-care (01) ==
LOC: ED 09:11 → MED 16:06
PROVIDERS: ADMIT Internal Medicine; ATTEND Hospitalist
DX: R10.13 Epigastric pain (principal); I25.10 Atherosclerotic heart disease of native coronary artery without angina pectoris; I25.2 Old myocardial infarction; I10 Essential (primary) hypertension; E78.5 Hyperlipidemia, unspecified; Z79.82 Long term (current) use of aspirin; Z87.891 Personal history of nicotine dependence; R94.31 Abnormal electrocardiogram [ECG] [EKG]
CPT/HCPCS: 36415; 74177; 74246; 80048; 80053; 82272; 84484; 85025; 85610; 85730; 86850; 86900; 86901; 87338; 93005; 96361; 96365; 96366; 96375; 96376; 99284; G0378; J2270; J2543; Q9967